=== PATIENT | male | born 1985 | race Caucasian/White ===

== ENCOUNTER 2020-08-01 04:18 | Emergency (ER) | payer OTHER ==
[~2020-08-01] VITALS: Ht 188 cm; Wt 81.4 kg
[2020-08-01 04:19] VITALS: Ht 188 cm; Wt 81.4 kg
[2020-08-01] MEDS ORDERED: HUMALOG 30100 UNITS/ SC (04:22)
[2020-08-01] MEDS ORDERED: LANTUS INS100 UNITS/ SC (04:22)
[2020-08-01] MEDS ORDERED: CHOLESTEROL MED (04:23)
[2020-08-01 05:38] LABS: BASOPHILS 0.3 % (0-2); EOSINOPHILS 2.6 % (0-7); HEMATOCRIT 47.4 % (42.0-54.0); HEMOGLOBIN 16.2 g/dL (13.5-17.5); IMMATURE GRANULOCYTES 0.2 % (0-5); LYMPHOCYTE ABS# 1.05 10x3/uL (1.32-3.57); LYMPHOCYTES 18.2 % (15-50); MCH 32.9 pg (26.0-34.0); MCHC 34.2 g/dL (31.0-37.0); MCV 96.1 fL (80.0-100.0); MEAN PLATELET VOLUME 10.1 fL (7.4-10.4); MONOCYTES 9.2 % (2-11); NEUTROPHILS 69.5 % (40-80); PLATELET COUNT 155 10x3/uL (130-400); RBC 4.93 10x6/uL (4.20-6.10); RDW 14.1 % (11.5-14.5); WBC 5.8 10x3/uL (4.8-10.8)
[2020-08-01 05:50] LABS: APTT 41.1 SECONDS (22.8-39.4); INR 1.23 (0.85-1.17); PROTIME 14.3 SECONDS (11.6-15.0)
[2020-08-01 06:00] VITALS: BP 106/69
[2020-08-01 06:01] LABS: CALC OSMOLALITY 280 mosm/kg (275-300); CALCIUM 8.7 mg/dL (8.5-10.1); CARBON DIOXIDE 27.4 mmol/L (21.0-32.0); CHLORIDE - SERUM 103 mmol/L (98-107); CREATININE - SERUM 1.1 mg/dL (0.6-1.3); GLUCOSE 107 mg/dL (74-106); POTASSIUM - SERUM 3.6 mmol/L (3.5-5.1); SODIUM 139 mmol/L (136-145); UREA NITROGEN 21 mg/dL (7-18); eGFR NON AFRICAN AMERICAN 80 mL/min (90-120)
[2020-08-01 06:29] LABS: ALBUMIN 3.5 g/dL (3.4-5.0); ALKALINE PHOSPHATASE 110 U/L (30-120); ALT (SGPT) 56 U/L (10-68); AMYLASE - SERUM 53 U/L (25-115); BILIRUBIN - TOTAL 0.38 mg/dL (0.2-1.3); CKMB 0.8 U/L (0.0-3.6); CREATINE KINASE 105 UL (21-232); LIPASE 142 U/L (73-393); MAGNESIUM - SERUM 1.9 mg/dL (1.8-2.4); PROTEIN - SERUM 7.1 g/dL (6.4-8.2)
[2020-08-01 06:30] LABS: TROPONIN-I < 0.017 ng/mL (0.000-0.060)
== END 2020-08-01 16:30 | disposition home or self-care (01) ==
LOC: D.ER 04:18
PROVIDERS: Family Medicine
DX: R07.89 Other chest pain (principal); E11.9 Type 2 diabetes mellitus without complications; Z79.4 Long term (current) use of insulin